=== PATIENT | male | born 1985 | race Two or more races ===

== ENCOUNTER 2017-01-09 23:19 | Emergency (ER) | payer SELFPAY ==
[2017-01-09] MEDS ORDERED: LORAZEPAM 1 MG TABLET ONE (23:47)
[2017-01-09] MEDS ORDERED: MULTIVITAMINS 1 TAB TABLET ONE (23:56)
[2017-01-09] MEDS ORDERED: THIAMINE HCL 100 MG TABLET ONE (23:58)
--- NOTE | 2017-01-10 07:41 | RAD ---
History: Vague left-sided chest pain. Comparison: None. Technique: 2 views Findings: The soft tissue and bony structures are unremarkable. The heart size is appropriate. No infiltrate, effusion or pneumothorax is observed. The hilar and mediastinal structures are normal. Impression: 1. A negative 2 view chest
== END 2017-01-10 00:45 | disposition home or self-care (01) ==
LOC: ED 23:19
DX: R07.9 Chest pain, unspecified (principal); R11.2 Nausea with vomiting, unspecified; F15.90 Other stimulant use, unspecified, uncomplicated; Z72.89 Other problems related to lifestyle
CPT/HCPCS: 71020; 99283; 93005; 99284; A9270 ×3